=== PATIENT | male | born 1955 | race Caucasian/White ===

== ENCOUNTER 2019-01-19 10:05 | Observation (INO) | payer BC ==
[2019-01-19 10:41] LABS: CHLORIDE,CL 105 mEq/L (98-106); SODIUM,NA 139 mEq/L (136-145)
[2019-01-19] MEDS ORDERED: Iopamidol 755 Mg/ML 100 ML Bottle IVPUSH ONE (11:16)
[2019-01-19] MEDS ORDERED: Sodium Chloride 0.9% 10 ML Syringe FLUSH PRN (12:38)
[2019-01-19] MEDS ORDERED: Acetaminophen 325 MG Tab PO PRN (12:38)
[2019-01-19] MEDS ORDERED: diphenhydrAMINE 25 MG Cap PO SCH (20:00)
[2019-01-19] MEDS ORDERED: Ibuprofen 200 MG Tab PO SCH (20:00)
[2019-01-19] MEDS ORDERED: APIXABAN 5 MG PO SCH (20:00)
[2019-01-20] MEDS ORDERED: Hydrochlorothiazide 12.5 MG Cap PO SCH (08:00)
[2019-01-20] MEDS ORDERED: Simvastatin 40 MG Tab PO SCH (08:00)
[2019-01-20] MEDS ORDERED: APIXABAN 5 MG PO SCH (08:00)
[2019-01-20] MEDS ORDERED: Lisinopril 20 MG Tab PO SCH (08:00)
--- NOTE | 2019-01-20 11:11 | PCM.DCSUM1 ---
Discharge Summary - Hospital Course Free Text/Narrative:: Patient presented to clinic to see Jose Zacarias for increased shortness of breath, cold symptoms. 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 States that had led to walking pneumonia in the past. Did note yesterday that he was doing yard work and had to stop and rest frequently due to shortness of breath. Has had increased cough. No fevers. Work up in the clinic did show a d-dimer of 3.7, CTA of chest done. Results showed bilateral pulmonary emboli. Admitted and started on Eliquis. Diagnosis: Stroke: No Modified Shelia Scale: No Symptoms at All Modified Tensas Scale Score: 0 - Discharge Data Discharge Date: 01/20/19 Discharge Disposition: Home, Self-Care 01 Condition: Good - Referral to Home Health Primary Care Physician: Emanuel Raza MD - Patient Summary/Data Complications: none Hospital Course: Patient doing well. Is ambulating about and tolerating well. Does admit that he is short of breath yet with exertion. Oxygen sats have maintained above 95% on room air. Was started on Eliquis 10 mg BID for the next one week. Discharge home. Follow up with Dr. Raza in one week. - Patient Instructions Diet: Usual Diet as Tolerated Activity: As Tolerated - Discharge Plan *PRESCRIPTION DRUG MONITORING PROGRAM REVIEWED*: No *COPY OF PRESCRIPTION DRUG MONITORING REPORT IN PATIENT [facility]: No Prescriptions/Med Rec: Apixaban [Eliquis] 10 mg PO BID #60 tablet Home Medications: Home Meds Cholecalciferol (Vitamin D3) [Vitamin D3] 2,000 unit PO QAM 01/19/19 [History] Exenatide Microspheres [Bydureon Pen] 2 mg SUBCUT TH 01/19/19 [History] Ibuprofen/Diphenhydramine Cit [Advil Pm Caplet] 2 tab PO BEDTIME 01/19/19 [ History] Lisinopril/Hydrochlorothiazide [Lisinopril-Hctz 20-12.5 mg Tab] 1 each PO QAM [History] Magnesium 250 mg PO QAM 01/19/19 [History] Sildenafil Citrate 50 - 100 mg PO ASDIRECTED PRN 01/19/19 [History] Simvastatin [Zocor] 40 mg PO QAM 01/19/19 [History] metFORMIN HCl [Metformin HCl ER] 1,000 mg PO BID 10/07/19 [History] Apixaban [Eliquis] 10 mg PO BID #60 tablet 01/20/19 [Rx] Patient Handouts: Pulmonary Embolism, Apixaban oral tablets Referrals: Emanuel Raza MD [Primary Care Provider] - (Follow up with Dr. Raza in 10 days, labs prior to appointment (A1C)) - Discharge Summary/Plan Comment DC Time >30 min.: No - General Info Date of Service: 01/20/19 Admission Dx/Problem (Free Text: Bilateral PE Functional Status: Reports: Pain Controlled, Tolerating Diet, Ambulating - Review of Systems General: Denies: Weakness, Fatigue HEENT: Reports: No Symptoms Pulmonary: Reports: Shortness of Breath, Cough Cardiovascular: Denies: Chest Pain, Edema, Lightheadedness Gastrointestinal: Denies: Abdominal Pain, Nausea, Vomiting Genitourinary: Reports: No Symptoms Musculoskeletal: Reports: No Symptoms Skin: Reports: No Symptoms Neurological: Reports: No Symptoms - Patient Data Vitals - Most Recent: Last Vital Signs Temp 96.8 F 01/20/19 07:03 Pulse 70 01/20/19 07:03 Resp 16 01/20/19 07:03 BP 127/76 01/20/19 07:03 Pulse Ox 97 01/20/19 07:03 Weight - Most Recent: 267 lb Lab Results - Last 24 hrs: Laboratory Results - last 24 hr 01/19/19 01/20/19 Range/Units 17:01 07:28 POC Glucose 93 105 (75-105) mg/dl Med Orders - Current: Current Medications Discontinued Medications Acetaminophen (Tylenol) 650 mg PO Q4H PRN PRN Reason: Pain (Mild 1-3)/fever Apixaban (Eliquis) 10 mg PO BID [facility] Last Admin: 01/19/19 15:05 Dose: 10 mg Apixaban (Eliquis) 10 mg PO BID [facility] Last Admin: 01/20/19 07:29 Dose: 10 mg Diphenhydramine HCl (Benadryl) 25 mg PO BEDTIME [facility] Last Admin: 01/19/19 20:22 Dose: 25 mg Hydrochlorothiazide (Hydrochlorothiazide) 12.5 mg PO DAILY [facility] Ibuprofen (Motrin) 200 mg PO BEDTIME [facility] Last Admin: 01/19/19 20:22 Dose: 200 mg Iopamidol (Isovue-370 (76%)) 100 ml IVPUSH ONETIME ONE Stop: 01/19/19 11:17 Last Admin: 01/19/19 12:08 Dose: 100 ml Lisinopril (Prinivil) 20 mg PO QAM [facility] Magnesium Oxide (Magnesium Oxide) 250 mg PO QAM [facility] Ownmed Exenatide Microspheres [ Bydureon Pen] 2 Mg 2 mg SUBCUT TH [facility] Simvastatin ([facility]ocor) [facility] [place] Sodium Chloride (Saline Flush) 10 ml FLUSH ASDIRECTED PRN PRN Reason: Keep Vein Open - Exam General: Reports: Alert, Oriented HEENT: Reports: Mucous Membr. Moist/Crest Neck: Reports: Supple Lungs: Reports: Clear to Auscultation, Normal Respiratory Effort Cardiovascular: Reports: Regular Rate, Regular Rhythm GI/Abdominal Exam: Normal Bowel Sounds, Soft, Non-Tender Extremities: Normal Inspection, No Pedal Edema Skin: Reports: Warm, Dry Neurological: Reports: No New Focal Deficit
[2019-01-22] MEDS ORDERED: EXENATIDE 2 MG SUBCUT SCH (12:00)
== END 2019-01-20 09:35 | disposition home or self-care (01) ==
LOC: CC.MS 10:05 → CC.FCMC 10:05 → UNDOADMOB 12:21 → CC.MS 12:21
PROVIDERS: ADMIT Physician Assistant Medical; ATTEND Family Medicine
DX: I26.99 Other pulmonary embolism without acute cor pulmonale (principal); I10 Essential (primary) hypertension; E11.9 Type 2 diabetes mellitus without complications; Z88.5 Allergy status to narcotic agent; Z88.0 Allergy status to penicillin; Z79.899 Other long term (current) drug therapy; Z79.84 Long term (current) use of oral hypoglycemic drugs
CPT/HCPCS: 36415; 71275; 80048; 82550; 82962; 84484; 85025; 85379; 93005; A9270-GY; G0378; Q9967

== ENCOUNTER 2022-01-29 13:00 | Observation (INO) | payer BC ==
[2022-01-29] MEDS ORDERED: Sodium Chloride 0.9% 10 ML Syringe FLUSH PRN (13:13)
[2022-01-29 13:41] LABS: PTT,PARTIAL THROMBOPLSTIN TIME 23.1 SEC (23.2-32.3)
[2022-01-29 14:00] LABS: CHLORIDE,CL 98 mEq/L (98-106); ESTIMATED GFR 51 mL/min (>=60); SODIUM,NA 136 mEq/L (136-145)
[2022-01-29] MEDS: Iopamidol 755 Mg/ML 100 ML Bottle IVPUSH ONE (15:50)
[2022-01-29] MEDS: Heparin Sodium/0.45% NaCl 500 ML IV SCH (16:00)
[2022-01-29] MEDS: Heparin Sodium 5,000 Units/ML Vial IVPUSH ONE (16:00)
[2022-01-29] MEDS: Heparin Sodium/0.45% NaCl 500 ML ONE (17:16)
[2022-01-29] MEDS: Heparin Sodium 5,000 Units/ML Vial ONE (17:16)
[2022-01-29] MEDS ORDERED: metFORMIN 500 MG Tab ONE (19:48)
[2022-01-29] MEDS ORDERED: Insulin Glarg,Human.Rec.Analog 100 Unit/ML ONE (19:49)
[2022-01-29] MEDS ORDERED: Insulin Lispro 100 Units/ML 3 ML Vial ONE (19:49)
== END 2022-01-30 12:00 | disposition home or self-care (01) ==
LOC: CC.ED 13:00 → CC.ZCENSUS 15:15 → CC.ED 15:15
PROVIDERS: ADMIT Nurse Practitioner Family; ATTEND Nurse Practitioner Family
DX: I26.94 Multiple subsegmental thrombotic pulmonary emboli without acute cor pulmonale (principal); R53.1 Weakness; R06.02 Shortness of breath; R79.89 Other specified abnormal findings of blood chemistry; R00.0 Tachycardia, unspecified; I10 Essential (primary) hypertension; E11.9 Type 2 diabetes mellitus without complications; E66.9 Obesity, unspecified; E78.00 Pure hypercholesterolemia, unspecified; Z88.0 Allergy status to penicillin; Z88.5 Allergy status to narcotic agent; Z79.899 Other long term (current) drug therapy; Z96.659 Presence of unspecified artificial knee joint; Z79.84 Long term (current) use of oral hypoglycemic drugs; Z20.822 Contact with and (suspected) exposure to COVID-19
CPT/HCPCS: 36415; 71275; 80053; 81001; 84484; 85025; 85379; 85610; 85730; 87635; 87804; 93005; J1644; J1815; Q9967; U0002